=== PATIENT | female | born 1960 ===

== ENCOUNTER 2022-09-18 16:15 | Emergency (ER) | payer MEDICARE, OTHER ==
[~2022-09-18] VITALS: Ht 162.6 cm; Wt 117.0 kg
[2022-09-18] MEDS ORDERED: LAMOTRIGINE25 MG PO (18:32)
[2022-09-18] MEDS ORDERED: LEVETIRACETAM250 MG PO (18:32)
[2022-09-18] MEDS ORDERED: HYDROCHLOROTH12.5 MG PO (18:32)
[2022-09-18] MEDS ORDERED: DIVALPROEX SOD125 MG PO (18:32)
[2022-09-18] MEDS ORDERED: QUETIAPINE FUM100 MG PO (18:32)
[2022-09-18] MEDS ORDERED: GLYCOPYRROLATE1 MG PO (18:32)
[2022-09-18] MEDS ORDERED: LISINOPRIL20 MG PO (18:33)
[2022-09-18] MEDS ORDERED: SERTRALINE HCL100 MG PO (18:33)
[2022-09-18 19:32] VITALS: BP 158/74
== END 2022-09-18 19:34 | disposition home or self-care (01) ==
LOC: ED 16:15
DX: B30.9 Viral conjunctivitis, unspecified (principal); F99 Mental disorder, not otherwise specified; Z20.822 Contact with and (suspected) exposure to COVID-19; Z88.8 Allergy status to other drugs, medicaments and biological substances; Z79.899 Other long term (current) drug therapy
CPT/HCPCS: 87502; C9803; U0003

== ENCOUNTER 2022-10-17 05:53 | Day surgery (SDC) | payer MEDICARE, OTHER ==
[~2022-10-17] VITALS: Ht 162.6 cm; Wt 92.1 kg
[~2022-10-17 05:53] MED LIST: AZELASTINE HCL6 ML OPTH; DEPAKOTE SPRIN125 MG PO; DIVALPROEX SOD125 MG PO; EAR WAX DROPS15 M1; EZALLOR SPRINKL20 MG PO; GLYCOPYRROLATE1 MG PO; HYDROCHLOROTH12.5 MG PO; KEPPRA250 MG PO; LAMICTAL25 MG PO; LAMOTRIGINE25 MG PO; LANTISEPTIC113 GM TP; LEVETIRACETAM250 MG PO; LISINOPRIL20 MG PO; MAG-AL PLUS XS30 ML; MILK OF MA400 MG/5 M PO; MIRALAX119 GM; QUETIAPINE FUM100 MG PO; SEROQUEL100 MG PO; SERTRALINE HCL100 MG PO; SM TUSSIN CF S; TYLENOL325 MG PO; VENTOLIN HFA18 GM; VITAMIN D310 MC4 PO
[2022-10-17 06:21] VITALS: BP 137/89
--- NOTE | 2022-10-17 09:28 | NUR ---
10/17/22 0928 Sheets,Cammy 0837 PT ARRIVED TO PACU WITH LAB TECH DOING JAW THRUST AND NASAL AND ORAL AIRWAYS IN PLACE. 0838 BREATHING TREATMENT START PER LAB TECH, NOISEY AIRWAY NOTED. HOB INCREASED AND 6L MASK WITH BREATHING TREATMENT NOTED. 0840 JAW THRUST USED, VERY STIFF NECK AND JAW NOTED BY LAB TECH AND RN. MIRI CENTENO RN.
--- NOTE | 2022-10-17 10:39 | NUR ---
0850 - CALLED TO PACU FOR ASSESSING PATIENT AND PLACING ON BIPAP. PT WITH DEVELOPMENTAL DELAYS, LARGE NECK AND TONGUE CURRENTLY ON A SIMPLE MASK WITH CHIN THRUST. PLACED PT ON THE FOLLOWING SETTINGS: IPAP 17 EPAP 7 60% FIO2 FOR SPO2 OF 94%. HR 97 I-TIME 0.90 RISE 3 TIDAL VOLUME 324 MIN VENT 5.4 RR SET 16 DOING 20 PT WITH INSPIRATORY STRIDOR AND EXP COARSE WHEEZES T/O. 0908 - ALBUTEROL TREATMENT GIVEN VIA AEROGEN THROUGH BIPAP 0916 - RACEMIC EPI GIVEN VIA AEROGEN THROUGH BIPAP 0925 - SPO2 100% ON 60% O2, DECREASED FIO2 TO 50%. 1000 - DECREASED EPAP TO 6. VT 392 AND VE 7.8; RR 16 PT DOING 22 1015 - TRIALED PT OFF BIPAP ON RA AND PT DID WELL UNTIL PT WENT BACK TO SLEEP AND HAD APNEIC PERIODS. PT'S SATS WENT TO 84%. PLACED PT BACK ON BIPAP AT 1020. 1040 - PT OFF BIPAP AND ON SIMPLE MASK AT 10L/MIN FOR SPO2 OF 98%. ALARMS WERE SET AT: RR HIGH 40, LOW 9 VT HIGH 1000, LOW 170, VE SLOW 3.0, PRESSURES HIGH 30 LOW 4.
--- NOTE | 2022-10-17 11:25 | NUR ---
PT ARRIVES TO PACU UNIT VIA STRETCHER. REPORT RECEIVED FROM SHIRA DURAN. PT IS DROWSY BUT RESPONSIVE TO VERBAL STIMULI. PT IS ON 4L OF O2 VIA OXIMASK AT THIS TIME W/O2 SATS VIA PULSE OX >90%. PT HAS SMALL AMOUNT OF DRIED BLOOD DRAINAGE AROUND MOUTH FROM OPERATIVE SITE. PT IS NONVERBAL AT BASELINE BUT PER FLACC SCALE, NO PAIN AT THIS TIME. IV SITE WNL. LUNG SOUNDS ARE DIMINISHED IN BASES AND UPPER LOBES BILAT HAVE INS WHEEZE. CALL LIGHT WITHIN REACH, SCD'S IN PLACE, CAREGIVER AT BEDSIDE. NO FURTHER NEEDS AT THIS TIME.
[2022-10-17 11:32] VITALS: BP 161/94
--- NOTE | 2022-10-17 11:43 | NUR ---
THIS RN IN ROOM, PT TITRATED FROM 4L OF O2 VIA OXIMASK TO 3L. O2 SATS VIA PULSE OX MAINTAINT >90% WHILE AWAKE AND WITH EYES CLOSED. PT IS MORE AWAKE AND EYES ARE CONSISTENTLY OPEN WHILE LOOKING AROUND THE ROOM. PT HAS GOOD PRODUCTIVE COUGH AT THIS TIME. PT DOES NOT APPEAR IN ANY DISTRESS AND PER FLACC SCALE, NO PAIN AT THIS TIME.
[2022-10-17 12:24] VITALS: BP 135/84
--- NOTE | 2022-10-17 12:26 | NUR ---
THIS RN IN ROOM FOR ASSESSMENT AND VS. TITRATED FROM 3L OF O2 VIA OXYMASK TO 2L OF O2 VIA OXYMASK AND O2 SATS READ 92% AT THIS TIME WHILE PT HAS EYES CLOSED. INSPIRATORY WHEEZE HEARD IN BILAT UPPER LOBES AND DIMINISHED IN BILAT LOWER LOBES, NO SIGNS OF DISTRESS NOTED AND RESPIRATIONS ARE EVEN AND UNLABORED. PER FLACC SCALE OF 0 NO INDICATIONS OF PAIN AT THIS TIME, PT APPEARS COMFORTABLE. SURGERY SITE HAS SMALL AMOUNT OF SS DRAINAGE THAT IS DRIED, NO NEW SIGNS OF BLEEDING AT THIS TIME. CALL LIGHT WITHIN REACH, CAREGIVER AT BEDSIDE, NO FURTHER NEEDS AT THIS TIME.
[2022-10-17 13:16] VITALS: BP 142/90
--- NOTE | 2022-10-17 13:20 | NUR ---
IN PT ROOM FOR VS AND ASSESSMENT. PT IS A&O AT THIS TIME, NONVERBAL AT BASELINE. PER FLACC SCALE OF 0, NO SIGNS OF PAIN OR DISCOMFORT AT THIS TIME. PT TITRATED TO 1L OF O2 VIA NC FROM 2L, AND O2 SATS >90% AT THIS TIME. SMALL AMOUNT OF DRIED SS DRAINAGE IN MOUTH, CLEANED AT THIS TIME. PT HAS COMPLETELY WET THE BED, FULL BED CHANGE AT THIS TIME WITH 2 NURSE ASSIST. PT POST BED CHANGE W/O2 SATS MID 80% ON RA, PULSE OX REPOSITIONED WITH SAMPLE DYE MIXER LH. PT NOW BACK ON 1L OF O2 VIA OXYMASK W/O2 SATS >90%. PER LEANNE ICEBOX MAN, WILL CALL RT FOR CPAP D/T PT NOT TOLERATING INSTRUCTIONS FOR DEEP BREATHING, COUGHING, OR ABILITY TO USE IS. CALL LIGHT WITHIN REACH, CAREGIVER AT BEDSIDE.
--- NOTE | 2022-10-17 14:02 | NUR ---
1400 RT CALLED AND PLAN OF CARE DISCUSSED. MEDICARE INSURANCE SPECIALIST SUGGESTED CPAP AND RT AGREES. RT WILL BRING CPAP TO DEPARTMENT.
--- NOTE | 2022-10-17 14:24 | NUR ---
RT AT BEDSIDE, PT DROOLING BROWN TINGED LIQUID. SUCTION USED. CPAP PLACED, SEE RT SETTINGS. CAREGIVER AT BEDSIDE. O2 SAT HIGH 90S ON CPAP.
--- NOTE | 2022-10-17 14:25 | NUR ---
IN ROOM WITH ZOFIA RT AT THIS TIME FOR CPAP THERAPY D/T PT INABILITY TO TAKE DEEP BREATHS, COUGH, OR USE IS D/T NONVERBAL AT BASELINE. O2 IN PLACE VIA PULSE OX >90%, PT ON CPAP OF 14 W/ FIO2 AT 21%. PT TOLERATING WELL. THIS RN AND ZOFIA RT REMAIN IN ROOM.
[2022-10-17 14:30] VITALS: BP 154/78
--- NOTE | 2022-10-17 15:05 | NUR ---
THIS RN, TOYIN DEAL RN, AND SHIRA RN IN ROOM WITH PT AND 2 CAREGIVERS AT THIS TIME. POST CPAP ADMIN, O2 REMAINED BETWEEN 86 AND 89% VIA PULSE OX. PT WAS SAT UP AT BEDSIDE AND O2 INCREASED BETWEEN 91-95%, PT 2PA TO WC AND PT AMBULATED SELF AROUND UNIT, NO SIGNS OF DISTRESS. POST AMBULATION, PT O2 SATS INCONSISTENTLY BETWEEN 88 AND 94%, BUT >90% WHEN GOOD PLETH FORM VIA PULSE OX. PER CAREGIVERS, PT IS BACK AT BASELINE FOR BEHAVIOR. PT HAS SPASTICITY IN EXTREMITIES AND O2 TAKEN ON EAR, STICKER PULSE OX, AND REGULAR PULSE OX. PT CAREGIVERS COMFORTABLE WITH DISCHARGE AND PT REMAINS FREE OF PAIN PER FLACC SCALE, AND NO ACTIVE BLEEDING AT THIS TIME.
--- NOTE | 2022-10-17 15:55 | NUR ---
IN PT ROOM TO PROVIDE DISCHARGE INFORMATION TO CAREGIVERS, BOTH STATE VERBAL UNDERSTANDING. VS TAKEN, STABLE, O2 READING VIA PULSE OX AT 95% AT THIS TIME WITH FINGER PROBE HELD STEADY. IV SITE DC'ED, CATHETER TIP INTACT, GAUZE/COBAN IN PLACE. ESCORTED OFF OF UNIT VIA PERSONAL WC. ALL BELONGINGS IN PT POSSESSION, CAREGIVERS STATE NO FURTHER NEEDS OR QUESTIONS AT THIS TIME.
[2022-10-17 16:05] VITALS: BP 158/83
== END 2022-10-17 15:55 | disposition home or self-care (01) ==
LOC: DS 05:53
PROVIDERS: ATTEND Dentist General Practice
PROC: 0CRXXJ0 Replacement of Lower Tooth, Single, with Synthetic Substitute, External Approach (ICD-10-PCS; 2022-10-17)
PROC: 0CRWXJ1 Replacement of Upper Tooth, Multiple, with Synthetic Substitute, External Approach (ICD-10-PCS; 2022-10-17)
PROC: 0CDXXZ0 Extraction of Lower Tooth, Single, External Approach (ICD-10-PCS; principal; 2022-10-17 07:00)
DX: K05.6 Periodontal disease, unspecified (principal); K08.409 Partial loss of teeth, unspecified cause, unspecified class; K02.9 Dental caries, unspecified; K03.6 Deposits [accretions] on teeth; G80.4 Ataxic cerebral palsy; F79 Unspecified intellectual disabilities; G40.909 Epilepsy, unspecified, not intractable, without status epilepticus
CPT/HCPCS: 00170; 36415; 71045; 80048; 85025; 94640; 94660; A9270; J0330; J1100; J1885; J2250; J2405; J2704; J2765; J3010; J7121

== ENCOUNTER 2022-10-29 19:41 | Emergency (ER) | payer MEDICARE, OTHER ==
[~2022-10-29] VITALS: Ht 162.6 cm; Wt 92.1 kg
[2022-10-29 21:25] VITALS: BP 153/90
== END 2022-10-29 21:17 | disposition home or self-care (01) ==
LOC: ED 19:41
DX: H92.02 Otalgia, left ear (principal); F84.0 Autistic disorder; F79 Unspecified intellectual disabilities; M06.9 Rheumatoid arthritis, unspecified; G40.909 Epilepsy, unspecified, not intractable, without status epilepticus; F63.9 Impulse disorder, unspecified; R13.10 Dysphagia, unspecified; Z88.8 Allergy status to other drugs, medicaments and biological substances; Z79.899 Other long term (current) drug therapy
CPT/HCPCS: 99282

== ENCOUNTER 2024-05-29 10:41 | Emergency (ER) | payer MEDICARE, OTHER ==
[~2024-05-29] VITALS: Ht 162.6 cm; Wt 85.3 kg
[~2024-05-29 10:41] MED LIST changes: +VENTOLIN HFA18 GM INH
[2024-05-29] MEDS ORDERED: QUETIAPINE FUMA25 MG PO (10:57)
[2024-05-29 12:10] LABS: BASOPHILS 0.6 % (0-2); EOSINOPHILS 2.1 % (0-6); HEMATOCRIT 42.1 % (35.0-50.0); HEMOGLOBIN 14.5 g/dL (12.0-18.0); LYMPHOCYTES 36.7 % (24-44); MCH 31.5 (27-36); MCHC 34.4 g/dl (30-36); MCV 91.4 fl (81-99); MONOCYTES 7.2 % (0-12); NEUTROPHILS 53.4 % (39-80); PLATELET COUNT 221 K/uL (140-440); RBC 4.61 M/ul (4.3-5.7); RDW 14.7 (10.5-15.0)
[2024-05-29 12:21] LABS: BUN/CREATININE RATIO 26.53 (6.0-28.6); CALCIUM 8.9 mg/dL (8.5-10.1); CREATININE, SERUM 0.49 mg/dL (0.55-1.02)
[2024-05-29 12:25] LABS: BILIRUBIN, URINE NEGATIVE (negative); BLOOD/HGB, URINE NEGATIVE (Negative); KETONE, URINE NEGATIVE (Negative); LEUK ESTERASE, URINE NEGATIVE (negative); NITRITE, URINE NEGATIVE (negative)
[2024-05-29 12:30] LABS: EPITHELIAL CELLS, URINE SQUAMOUS 1+ /lpf (0-1+)
[2024-05-29 12:31] LABS: BACTERIA, URINE NONE SEEN /hpf (negative); CASTS, URINE NONE SEEN \\lpf; COLLECTION TYPE, URINE CLEAN CATCH; CRYSTALS, URINE NONE SEEN (0-1+); RED BLOOD CELLS, URINE 0-1 /hpf (0-5); REFLEX CULTURE, URINE No (No)
[2024-05-29 15:30] VITALS: BP 146/100
== END 2024-05-29 15:30 | disposition home or self-care (01) ==
LOC: ED 10:41
PROVIDERS: Emergency Medicine
DX: R41.82 Altered mental status, unspecified (principal); F84.0 Autistic disorder; G40.909 Epilepsy, unspecified, not intractable, without status epilepticus; R62.50 Unspecified lack of expected normal physiological development in childhood; Z88.8 Allergy status to other drugs, medicaments and biological substances; Z79.899 Other long term (current) drug therapy
CPT/HCPCS: 36415; 70450; 80048; 81001; 85025; 99284-25

== ENCOUNTER 2024-07-22 06:44 | Day surgery (SDC) | payer MEDICARE, OTHER ==
[~2024-07-22] VITALS: Ht 162.6 cm; Wt 82.6 kg
[~2024-07-22 06:44] MED LIST changes: +ACETAMINOPHEN325 M1 PO; +ADULT TUSS100 MG/51 PO; +ALBUTEROL2.5 MG/3 M INH; +GNP VITAMIN A113 GM TOP; +LACTATED RINGER'S 1,000 ML IV SCH; +QUETIAPINE FUM150 M1 PO; +QUETIAPINE FUMA25 MG PO; -VENTOLIN HFA18 GM INH
[2024-07-22] MEDS ORDERED: EAR WAX DROPS15 M1 (06:46)
[2024-07-22] MEDS ORDERED: MILK OF MA400 MG/5 M PO (06:47)
[2024-07-22] MEDS ORDERED: NYAMYC15 GM TOP (06:49)
[2024-07-22] MEDS ORDERED: LIDOCAINE HCL 1% 5 ML SDV INJ ONE (07:00)
[2024-07-22] MEDS ORDERED: IBLOOD GLUCOSE TEST STRIP 1 EA TEST VI PRN ×2 (07:00→09:45)
[2024-07-22 07:08] VITALS: BP 183/108
--- NOTE | 2024-07-22 07:30 | NUR ---
PT NOT AVAILABLE FOR VISIT. PROVIDED PRAYER.
[2024-07-22] MEDS ORDERED: dexmedeTOMIDine HCl 200 MCG/2 ML VIAL NAS ONE (08:00)
[2024-07-22] MEDS ORDERED: MIDAZOLAM HCL 2 MG/2 ML VIAL ONE (08:13)
[2024-07-22] MEDS ORDERED: KETAMINE HCL 500 MG/5 ML MDV ONE (08:25)
[2024-07-22] MEDS ORDERED: ROCURONIUM BROMIDE 50 MG/5 ML SYR ONE (08:47)
[2024-07-22] MEDS ORDERED: DEXAMETHASONE SOD PHOS 4 MG/ML VIAL ONE (08:47)
[2024-07-22] MEDS ORDERED: SUGAMMADEX SODIUM 200 MG/2 ML ML ONE (08:47)
[2024-07-22] MEDS ORDERED: propofoL 200 MG/20 ML VIAL ONE (08:47)
[2024-07-22] MEDS ORDERED: LIDOCAINE HCL 2% 5 ML SDV ONE (08:47)
[2024-07-22] MEDS ORDERED: ondansetron HCL 4 MG/2 ML VIAL ONE (08:47)
[2024-07-22] MEDS ORDERED: fentaNYL citrate 100 MCG/2 ML VIAL ONE (08:47)
[2024-07-22 09:00] LABS: BASOPHILS 0.7 % (0-2); EOSINOPHILS 2.4 % (0-6); HEMATOCRIT 41.1 % (35.0-50.0); HEMOGLOBIN 14.1 g/dL (12.0-18.0); LYMPHOCYTES 39.9 % (24-44); MCH 31.5 (27-36); MCHC 34.4 g/dl (30-36); MCV 91.5 fl (81-99); MONOCYTES 6.6 % (0-12); NEUTROPHILS 50.4 % (39-80); PLATELET COUNT 208 K/uL (140-440); RBC 4.49 M/ul (4.3-5.7); RDW 14.6 (10.5-15.0)
[2024-07-22 09:08] LABS: ANION GAP 6.3 (7-21); BUN/CREATININE RATIO 15.62 (6.0-28.6); CALCIUM 8.8 mg/dL (8.5-10.1); CREATININE, SERUM 0.32 mg/dL (0.55-1.02); POTASSIUM 4.3 mmol/L (3.5-5.1)
[2024-07-22] MEDS ORDERED: ePHEDrine sulfate 50 MG/ML AMP ONE (09:24)
[2024-07-22] MEDS ORDERED: ondansetron HCL 4 MG/2 ML VIAL IV PRN (09:45)
[2024-07-22] MEDS ORDERED: fentaNYL citrate 50 MCG/ML SDV IV PRN (09:45)
[2024-07-22] MEDS ORDERED: PROCHLORPERAZINE EDISYLATE 10 MG/2 ML VIAL IV PRN (09:45)
[2024-07-22] MEDS ORDERED: droPERidol 5 MG/2 ML VIAL IV PRN (09:45)
[2024-07-22] MEDS ORDERED: MIDAZOLAM HCL 2 MG/2 ML VIAL IV PRN (09:45)
[2024-07-22] MEDS ORDERED: NALOXONE HCL 0.4 MG SYR IV PRN (09:45)
--- NOTE | 2024-07-22 11:58 | NUR ---
07/22/24 Vale Silva 1139- PT ARRIVES TO PACU, SEMI MEJIA POSITION, NON REACTIVE TO STIMULUS. PT HAS OPA IN PLACE WITH 6L O2 PER MASK, BREATHING EVEN AND NON LABORED. LR INFUSING TO RH IV. PT HAS BANDAID TO LEFT BREAST WITH SMALL AMOUNT OF DRAINAGE AND BRUISING AROUND THE BANDAID. ABD ROUND, FIRM, NON DISTENDED. ALL MONITORS IN PLACE. 1148- PT REACTIVE TO TACTILE STIMULUS, TURNS HEAD SIDE TO SIDE, OPA REMOVED. O2 LEFT PLACE AT THIS TIME. CONTINUE TO MONITOR PT.
[2024-07-22 12:45] VITALS: BP 166/78
--- NOTE | 2024-07-22 12:45 | NUR ---
PT ARRIVED BACK TO DS ON 2L VIA NC. PT DROWSY, BUT AROUSABLE TO TACTILE STIMULI. VS TAKEN. IV SITE ASSESSED AND NOTED TO BE CDI UPON ARRIVAL BACK TO . REPORT RECEIVED FROM INFLATABLE BUILDINGS LAMINATOR. SURGICAL SITE VISUALIZED WITH INFLATABLE BUILDINGS LAMINATOR. NOTED MODERATE AMT OF SANGUINOUS DRAINAGE ON L BREAST BIOPSY DRSG. NO BLEEDING NOTED FROM EXTRACTION SITE IN MOUTH. PT W/O S/SX'S PAIN OR NAUSEA. PTS CG IN ROOM UPON RETURN. BED IN LOW POSITION, WHEELS LOCKED. BILAT RAILS IN PLACE. CALL LIGHT WITHIN PT REACH. THICKENED WATER AND PUDDING PROVIDED FOR PT. CG TO ASSIST WITH FEEDING ONCE PT MORE AWAKE. PT INCONTINENT OF B&B. ATTENDS IN PLACE AND CLEAN AND DRY AT THIS TIME.
--- NOTE | 2024-07-22 13:00 | NUR ---
TITRATED PTS O2 TO 1L/NC WITH SATS AT 92%
[2024-07-22 13:45] VITALS: BP 154/83
[2024-07-22] MEDS ORDERED: SEVOFLURANE 250 ML BTL INH ONE (14:05)
--- NOTE | 2024-07-22 14:05 | NUR ---
1345-INTO PTS ROOM FOR ROUTINE REASSESSMENT. VS TAKEN. IV SITE ASSESSED. SURGICAL SITES VISUALIZED. NO ACUTE CHANGES NOTED FROM PREVIOUS ASSESSMENT. PT TITRATED TO RA WITH SATS STABLE ON RA AT 92-93%. PT APPEARS MORE AWAKE AND COGNITION HAS RETURNED TO HER BASELINE. CG REMAINS IN ROOM AT BEDSIDE. PT WITHOUT S/SX OF PAIN OR NAUSEA. PT IS INCONTINENT OF B&B AT BASELINE. ATTENDS CHECKED AND LARGE VOID NOTED. CG ASSISTED THIS RN IN CHANGING BRIEF. PTS DRESS, SOCKS, AND SHOES PLACED BY THIS RN WITH HER CG'S ASSIST. HOB ELEVATED TO APPROX 45 DEGREES. CG ASSISTING PT WITH EATING PUDDING AND TAKING THICKENED FLUIDS BY SPOON. 1400-MAMMOGRAM TECH NOTIFIED PT IS AWAKE AND ABLE TO TRANSFER TO . 1405-IV REMOVED, TIP APPEARS INTACT. PRESSURE DRSG APPLIED WITH GAUZE AND COBAN. DISCHARGE INSTRUCTIONS REVIEWED WITH CG. ALL QUESTIONS ANSWERED.
--- NOTE | 2024-07-22 14:10 | NUR ---
PT DISCHARGED FROM DS VIA WC TO CARE OF CG. PT HEADED TO MAMMOGRAPHY WITH CG. ALL PERSONAL BELONINGS TAKEN WITH PT AND CG.
--- NOTE | 2024-07-22 19:49 | EKG ---
[facility] [address] [facility] [place] [address] Signed Sinus bradycardia Otherwise normal ECG No previous ECGs available Confirmed by Dillan Tejada MD ([id number]) on 07/22/2024 7:49:46 PM Electronically Signed By: DILLAN TEJADA MD 07/22/241948 PATIENT NAME: CARLOS VITAL Louis Electrocardiogram DATE OF : 56 PHYSICIAN: DILLAN TEJADA MD REPORT #: [id number] REPORT IS CONFIDENTIAL AND NOT TO BE RELEASED WITHOUT AUTHORIZATION
--- NOTE | 2024-07-26 10:52 | PATH ---
[facility] [address] [place], [place] [address] Signed THIS IS AN ADDENDUM REPORT SPECIMEN(S): A LEFT BREAST, 2:30 4 CM FN SPECIMEN SOURCE: A. LEFT BREAST, 2:30 4 CM FN CLINICAL HISTORY: Area of multiple echogenic structures. US-guided. 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 Davalos on 07/25/24. As part of [facility]' Quality Improvement Program, this case was reviewed by another member of our pathology staff. BRP MICROSCOPIC EXAMINATION: Histologic sections of all submitted blocks are examined by light microscopy. These findings, together with the gross examination, support the pathologic diagnosis. GROSS DESCRIPTION: The specimen, labeled and designated "Ansley Sheehan, left breast, 230, 4 cm from nipple," is received in formalin and consists of 8 cores of yellow-frazier soft tissue measuring up to 2.0 cm in length by up PATIENT NAME: CARLOS SHEEHAN PATHOLOGY DATE OF : 56 REPORT #: [id number] PHYSICIAN: HETAL IRVING PCP: THEODORA CASTILLO MD REPORT IS CONFIDENTIAL AND NOT TO BE RELEASED WITHOUT AUTHORIZATION [facility] [address] [place], [place] [address] Signed to 0.3 cm in diameter. The tissues inked blue and submitted entirely in cassettes (A1-A2). Cold Ischemic Time: 6 minutes Formalin Fixation Time: 10.5 hours AB (under the direct supervision of a pathologist) The Gross Description was prepared using a voice recognition system. The report was reviewed for accuracy; however, sound-alike word errors, addition and/or deletions may occur. If there is any question about this report, please contact Client Services. ADDITIONAL NOTES: Immunohistochemical and/or in situ hybridization studies if performed in this case included appropriate positive controls that reacted as expected. This test was developed and its performance characteristics determined by [facility]. It has not been cleared or approved by the U.S. Food and Drug Administration. The FDA has determined that such clearance or approval is not necessary. This test is used for clinical purposes. It should not be regarded as investigational or for research. [facility] is certified under the Clinical Laboratory Improvement Amendments of 1988 (CLIA) as qualified to perform high complexity clinical laboratory testing. PERFORMING LABORATORY: Technical component was performed by [facility], [address] [place] [address] (CLIA# [id number]). Professional interpretation was performed by [facility] - [facility], [address] [place] [address] (CLIA#: [id number]). ADDITIONAL NOTES: Immunohistochemical and/or in situ hybridization studies if performed in this case included appropriate positive controls that reacted as expected. This test was developed and its performance characteristics determined by [facility]. It has not been cleared or approved by the U.S. Food and Drug Administration. The FDA has determined that such clearance or approval is not necessary. This test is used for clinical purposes. It should not be regarded as investigational or for research. [facility] is certified under the Clinical Laboratory Improvement Amendments of 1988 (CLIA) as qualified to perform high complexity clinical laboratory testing. Professional interpretation was performed by [facility] PATIENT NAME: CARLOS SHEEHAN PATHOLOGY DATE OF : 56 REPORT #: [id number] PHYSICIAN: HETAL IRVING PCP: THEODORA CASTILLO MD REPORT IS CONFIDENTIAL AND NOT TO BE RELEASED WITHOUT AUTHORIZATION [facility] [address] [place], [place] [address] Signed [place], Formerly named [facility] [address] (CLIA#: [id number]). REASON FOR ADDENDUM: To add results of additional testing ADDENDUM PATHOLOGIC DIAGNOSIS: Breast Biomarker Reporting Template Test(s) Performed: Estrogen Receptor (ER) Status: Positive (greater than 10% of cells demonstrate nuclear positivity) Percentage of Cells with Nuclear Positivity: 91-100% Average Intensity of Staining: Strong Test Type: Food and Drug Administration (FDA) cleared (test / vendor) - Aide Primary Antibody: SP1 Scoring System: No separate scoring system used Progesterone Receptor (PgR) Status: Positive Percentage of Cells with Nuclear Positivity: 31-40% Average Intensity of Staining: Moderate Test Type: Food and Drug Administration (FDA) cleared (test / vendor) - Aide Primary Antibody: 1E2 Scoring System: No separate scoring system used Cold Ischemia and Fixation Times: Meet requirements specified in latest version of the ASCO / CAP Guidelines Cold Ischemia Time (minutes): 6 min Fixation Time (hours): 10.5 hours Testing Performed on Block Number(s): A1 METHODS Fixative: Formalin BRP Diagnostician: Srinivas Davalos MD Pathologist Electronically Signed 07/26/2024 Copies: ~ PATIENT NAME: CARLOS SHEEHAN PATHOLOGY DATE OF : 56 REPORT #: [id number] PHYSICIAN: HETAL PATHOLOGY PCP: THEODORA CASTILLO MD REPORT IS CONFIDENTIAL AND NOT TO BE RELEASED WITHOUT AUTHORIZATION
== END 2024-07-22 14:10 | disposition home or self-care (01) ==
LOC: OPS 06:44 → DS 06:44 → OPS 09:05 → DS 09:05 → OPS 14:10
PROVIDERS: ATTEND Dentist General Practice
PROC: 0CDWXZ2 Extraction of Upper Tooth, All, External Approach (ICD-10-PCS; 2024-07-22)
PROC: 0CDXXZ2 Extraction of Lower Tooth, All, External Approach (ICD-10-PCS; principal; 2024-07-22 09:05)
DX: K02.9 Dental caries, unspecified (principal); D05.92 Unspecified type of carcinoma in situ of left breast; M19.90 Unspecified osteoarthritis, unspecified site; Z79.899 Other long term (current) drug therapy; Z88.8 Allergy status to other drugs, medicaments and biological substances
CPT/HCPCS: 00170; 19083; 36415; 77065; 80048; 85025; 88305; 88360; 93005; 93010; J1100; J2003; J2250; J2405; J2704; J3010; J3490

== ENCOUNTER 2024-12-01 05:42 | Observation (INO) | payer MEDICARE, OTHER ==
[2024-12-01] VITALS (10 sets, daily range): BP systolic 99–148; BP diastolic 49–72
[~2024-12-01] VITALS: Ht 162.6 cm; Wt 85.0 kg
[~2024-12-01 05:42] MED LIST changes: +EAR WAX DROPS15 M1 AU; -EZALLOR SPRINKL20 MG PO; +NYAMYC15 GM TOP; +ROSUVASTATIN CA20 MG PO; +VITAMIN D310 MC1 PO; -VITAMIN D310 MC4 PO
[2024-12-01] MEDS ORDERED: SODIUM CHLORIDE 0.9% 20 ML IV ONE (06:53)
[2024-12-01] MEDS ORDERED: Methylene Blue 100 MG/10 ML SDV ONE (06:53)
[2024-12-01] MEDS ORDERED: LIDOCAINE HCL 1% 5 ML SDV INJ ONE (07:00)
[2024-12-01] MEDS ORDERED: IBLOOD GLUCOSE TEST STRIP 1 EA TEST VI PRN (07:00)
[2024-12-01] MEDS ORDERED: HEParin SOD (PORCINE) 5,000 UNIT/ML SDV SUB-Q SCH (07:00)
[2024-12-01] MEDS ORDERED: CEFAZOLIN SODIUM 2 GM/20 ML SYR IV SCH ×2 (07:00→14:00)
--- NOTE | 2024-12-01 07:33 | NUR ---
VISITED DURING SPIRITUAL CARE ROUNDS. PT NONVERBAL, DID NOT RESPOND TO MY GREETING. ABLE TO INDICATE FRUSTRATION IN BROADEST SENSE TO CAREGIVERS BUT NOT ABLE TO ENGAGE IN VISIT IN MEANINGFUL WAY. CAREGIVERS PRESENT DENY IMMEDIATE NEEDS. TOP LIFTER PROVIDED SUPPORTIVE PRESENCE, HOSPITALITY, PRAYER.
[2024-12-01] MEDS ORDERED: DEXAMETHASONE SOD PHOS 4 MG/ML VIAL ONE (08:46)
[2024-12-01] MEDS ORDERED: ACETAMINOPHEN 1,000 MG/100 ML VIAL ONE (08:46)
[2024-12-01] MEDS ORDERED: KETOROLAC TROMETHAMINE 30 MG/ML VIAL ONE (08:46)
[2024-12-01] MEDS ORDERED: ROCURONIUM BROMIDE 50 MG/5 ML SYR ONE (08:47)
[2024-12-01] MEDS ORDERED: SUGAMMADEX SODIUM 200 MG/2 ML ML ONE (09:24)
[2024-12-01] MEDS ORDERED: MIDAZOLAM HCL 2 MG/2 ML VIAL ONE (09:24)
[2024-12-01] MEDS ORDERED: DIVALPROEX SODIUM 500 MG TABLET.DR PO SCH (10:27)
[2024-12-01] MEDS ORDERED: SERTRALINE HCL 100 MG TAB PO SCH (10:29)
[2024-12-01] MEDS ORDERED: LACTATED RINGER'S 1,000 ML IV SCH (10:30)
[2024-12-01] MEDS ORDERED: MORPHINE SULFATE 10 MG/ML VIAL IV PRN (10:30)
[2024-12-01] MEDS ORDERED: PROCHLORPERAZINE EDISYLATE 10 MG/2 ML VIAL IV PRN (10:30)
[2024-12-01] MEDS ORDERED: KETOROLAC TROMETHAMINE 30 MG/ML VIAL IV PRN (10:30)
--- NOTE | 2024-12-01 10:51 | NUR ---
12/01/24 1051 Sheets,Cammy 1011 PT ARRIVED TO PACU ON 8L VIA MASK WITH ORAL AIRWAY IN PLACE. SOME SNORING NOTED WITH SOME UPPER OBSTRUCTION NOTED. CHIN LIFT USED OFF AND ON TO MAINTAIN AIRWAY. HOB INCREASED. O2 SAT REMAINS UPPER TO MID 90S. PT NONAROUSABLE TO TACTILE STIMULI AT THIS TIME.
--- NOTE | 2024-12-01 11:30 | NUR ---
PT ARRIVAL TO ROOM. MOVED OVER TO MED SURG STRETCHER VIA HOVER MAT. PT TOLERATED WELL. BRIEF SATURATED, OLIVIA-CARE COMPLETED AND NEW BRIEF PLACED. PUREWICK PLACED DUE TO INCONTINENCE AND FOR SKIN INTEGRITY. NO DISTRESS NOTED.
[2024-12-01] MEDS ORDERED: DIVALPROEX SODIUM 125 MG CAP.SPRINK PO SCH (13:00)
--- NOTE | 2024-12-01 13:33 | NUR ---
PT RESTING IN BED, LOOKING AROUND ROOM. NO DISTRESS NOTED. FALL PRECAUTIONS IN PLACE, SCD'S ON. O2 TITRATED TO 1L VIA NC.
[2024-12-01] MEDS ORDERED: ACETAMINOPHEN 500 MG TAB PO SCH (14:00)
--- NOTE | 2024-12-01 14:32 | NUR ---
Pt awake, HOB elevated. on room air, post op CPOX on at bedside, sats WNL. cooperative with vitals. took scheduled Tylenol 1000mg crushed and given with walt. Took w/o problems. tried to give her her honey thickened liquids and was unable to do as he kept moving L arm across mouth and pushing straw and cup away. Took sips of liquids via spoon. abd incision covered, CLINT with sanguineous drainage. SCDs in place. no s/sx distress at this time
[2024-12-01] MEDS ORDERED: ABILIFY10 MG PO (15:30)
[2024-12-01] MEDS ORDERED: MIRALAX119 GM PO (15:43)
[2024-12-01] MEDS ORDERED: LIP BALM BASE90 GM TOP (15:45)
--- NOTE | 2024-12-01 15:47 | NUR ---
MED REC COMPLETE
--- NOTE | 2024-12-01 15:50 | NUR ---
PT RESTING IN BED, NO DISTRESS NOTED. REPOSITIONED PT IN BED, KNEES ELEVATED. SCD IN PLACE. INCISION COVERED WITH DRESSING, SCANT AMOUNT OF RED DRAINAGE ON DRESSING, OTHERWISE INTACT. CLINT DRAIN INTACT, DRAINING WNL. SKIN SURROUNDING INCISION WNL. FALL PRECAUTIONS IN PLACE, CURTAIN OPEN FOR FALL RISK.
[2024-12-01] MEDS ORDERED: ALBUTEROL SULFATE 0.083% 3 ML VIAL INH PRN (16:00)
[2024-12-01] MEDS ORDERED: SEVOFLURANE 250 ML BTL INH ONE (16:30)
--- NOTE | 2024-12-01 16:55 | NUR ---
PT RESTING IN BED, NO DISTRESS NOTED. IVF CONTINUING PER ORDER. FALL PRECAUTIONS IN PLACE
--- NOTE | 2024-12-01 17:15 | NUR ---
INTO ROOM TO ASSIST PT WITH FEEDING. PT TOLERATING WELL, EATING IN SMALL BITES. PT CAREGIVER AT BEDSIDE, REPORTS PT DOESN'T LIKE WATER BUT WILL DRINK THE THICKENED JUICE. PROVIDED SOME APPLE JUICE, CAREGIVER ASSISTED WITH DRINKING. UPDATED CAREGIVER ON PLAN OF CARE, DENIES NEEDS. CALL LIGHT IN REACH OF CAREGIVER, FALL PRECAUTIONS IN PLACE
--- NOTE | 2024-12-01 18:16 | NUR ---
ROUNDED ON THE PATIENT AT THIS TIME. SANGUINEOUS DRAINAGE NOTED ON THE LEFT CHEST DRESSING. MD GAVE VERBAL ORDER TO REINFORCE DRESSING IS ABD AND TAPE. DRAIN EMPTIED AT THIS TIME. PATIENT WITH A VISITOR SITTING ON THE COUCH AT THIS TIME. CALL LIGHT AND PERSONAL BELONGINGS ARE WITHIN REACH.
--- NOTE | 2024-12-01 18:32 | NUR ---
PATIENT IS IN BED AT THIS TIME, ATHLETIC EQUIPMENT CUSTODIAN CHARTED VITALS AND I&O'S, CALL LIGHT WITH IN REACH, PATIENT HAS A FRESH BREIF, MALIK GARDNER JP DRAIN EMPTIED. IT FILLED UP QUITE FAST SINCE ROGER GILLIAM EMPTIED IT. RN NOTIFIED, AND I WILL KEEP AN EYE ON IT TO MAKE SURE IT ISNT FILLING TO FAST. WARM BLANKET FROM WARMER AND NOTHING ELSE NEEDED AT THIS TIME.
--- NOTE | 2024-12-01 19:39 | NUR ---
THIS RN CALLS DR. WHITTAKER REGARDING INCREASE IN DARK RED DRAINAGE TO CLINT DRAIN. MD STATES TO PLACE COMPRESSION ABOVE CLINT SITE AND TO STRIP CLINT TUBING. THIS RN ASKS DR. WHITTAKER FOR PARAMETERS TO CALL BACK REGARDING DRAINAGE, MD STATES TO "USE JUDGEMENT".
--- NOTE | 2024-12-01 20:00 | NUR ---
RECEIVED REPORT FROM DAY SHIFT RN. PATIENT LAYING IN BED WITH HOB RAISED, EYES OPEN, CHEST RISE EQUAL AND UNLABORED. NO CONCERNS NOTED AT THIS TIME.
[2024-12-01] MEDS ORDERED: levETIRAcetam 500 MG TAB PO SCH (21:00)
--- NOTE | 2024-12-01 21:59 | NUR ---
PRESSURE DRESSING APPLIED PER MD ORDER, PATIENT TOLERATED WELL. SCHEDULED MEDICATIONS ADMINISTERED, ASSESMENT COMPLETED, VITAL SIGNS OBTAINED. PATIENT LAYING IN BED WITH HOB RAISED. CHEST RISE EQUAL AND UNLABORED, EYES OPEN. NO NEEDS IDENTIFIED AT THIS TIME.
[2024-12-02] VITALS (9 sets, daily range): BP systolic 128–152; BP diastolic 49–68
--- NOTE | 2024-12-02 00:26 | NUR ---
PATIENT LAYING IN BED. EYES OPEN, CHEST RISE EQUAL AND UNLABORED. NO IMMEDIATE CONCERNS NOTED AT THIS TIME.
--- NOTE | 2024-12-02 02:00 | NUR ---
SEMICONDUCTOR WAFERS ETCHER STRIPPER OBTAINED VITALS AND I&O. PT STATES NO NEEDS AT THIS TIME. CALL LIGHT WITHIN REACH AND BED ALARM ON.
--- NOTE | 2024-12-02 02:36 | NUR ---
PATIENT LAYING IN BED. EYES OPEN, CHEST RISE UNLABORED AND EQUAL. NO APPARENT NEEDS AT THIS TIME.
--- NOTE | 2024-12-02 03:32 | NUR ---
PATIENT LAYING IN BED, EYES OPEN, CHEST RISE EQUAL AND UNLABORED. CLINT DRAIN EMPTIED, 95 ML DARK RED DRAINAGE. DRESSING CLEAN, DRY, AND INTACT. NO OTHER CONCERNS NOTED AT THIS TIME.
--- NOTE | 2024-12-02 04:07 | NUR ---
PATIENT IN BED, EYES OPEN, CHEST RISE EQUAL AND UNLABORED. PERSONAL BELONGINGS AND CALL LIGHT IN REACH, SCDS IN PLACE. NO IMMEDIATE CONCERNS NOTED AT THIS TIME.
--- NOTE | 2024-12-02 05:32 | NUR ---
PATIENT LAYING IN BED, EYES OPEN, CHEST RISE EQUAL AND UNLABORED. SCDS IN PLACE, PUREWICK CHANGED, DRAIN EMPTIED WITH RED DRAINAGE INTAKE AND OUTPUT DOCUMENTED. CALL LIGHT AND PERSONAL BELONGINGS IN PLACE. NO IMMEDIATE CONCERNS NOTED AT THIS TIME.
--- NOTE | 2024-12-02 06:41 | NUR ---
PATIENT IN BED, EYES OPEN, CHEST RISE EQUAL AND UNLABORED. CALL LIGHT AND PERSONAL BELONGINGS IN REACH. IV FLUIDS INFSING WITHOUT DIFFICULTY. SCHEDULED MEDICATIONS ADMINISTERED. PATIENT MOVED UP IN BED. NO FURTHER MEEDS APPARENT AT THIS TIME.
[2024-12-02 06:52] LABS: BASOPHILS 0.1 % (0.1-1.2); EOSINOPHILS 0.1 % (0.7-5.8); LYMPHOCYTES 33.3 % (19.3-51.7); MCH 31.7 PG (25.6-32.2); MCHC 34.8 g/dL (32.2-35.5); MCV 91.3 fL (79.4-94.8); MONOCYTES 7.3 % (4.7-12.5); NEUTROPHILS 58.9 % (34.0-71.1); RBC 3.34 M/uL (3.93-5.22)
--- NOTE | 2024-12-02 07:35 | NUR ---
PT AWAKE, LOOKING AROUND ROOM, NO DISTRESS NOTED. DRESSING INTACT, NO NEW BLEEDING NOTED. CLINT DRAIN DRAINING WNL, EMPTIED AT THIS TIME. REPOSITIONED PT IN BED. FALL PRECAUTIONS IN PLACE, IVF CONTINUING PER ORDER.
--- NOTE | 2024-12-02 08:43 | NUR ---
CLEANED UP PT FOLLOWING BREAKFAST. FACE WASHED AND HANDS WASHED. PT SEEMED TO ENJOY BREAKFAST AND THE WARM WASHCLOTH. TV ON, PT AT A 45 DEGREE SIT UP. CALL LIGHT WITHIN REACH, CURTAIN ALSO OPEN TO ASSIST PT.
--- NOTE | 2024-12-02 08:46 | NUR ---
PT WAS FED BREAKFAST, SHE SEEMED TO ENJOY HER MEAL, BUT DID NOT WANT ANYTHING TO DRINK. PT PUTS HANDS UP WHEN SHE DOES NOT WANT SOMETHING.
--- NOTE | 2024-12-02 08:52 | NUR ---
PT RESTING IN BED. ENJOYED BREAKFAST AND TOLERATED VITALS. TV ON AND PT CLEANED UP WITH AM ROUTINE, CLEANED FACE, HANDS AND ARMS. PT DID NOT WANT ANYTHING EXCEPT FOOD NEAR HER MOUTH, PT HAD NOTHING TO DRINK.
[2024-12-02] MEDS ORDERED: levETIRAcetam 500 MG TAB PO SCH (09:00)
--- NOTE | 2024-12-02 09:28 | NUR ---
INTO ROOM WITH DR WHITTAKER. SURGICAL INCISION ASSESSED. GOOD DRAINAGE THROUGH CLINT TUBE, LIGHT RED IN COLOR. PT SHOWS NO SIGNS OF DISTRESS, MOVING ALL EXTREMTIES WELL AND WNL. SCD REMAIN ON, IVF CONTINUING. PT TOOK ALL MEDICATIONS WELL IN CHOCOLATE PUDDING. CURTAIN OPEN FOR FALL RISK, CPOX IN PLACE
[2024-12-02] MEDS ORDERED: ACETAMINOPHEN500 MG PO (09:40)
--- NOTE | 2024-12-02 10:30 | NUR ---
Notified by staff pt may dc today. They spoke with pts caregiver and she has concerns for pt to return to [facility] with a CLINT drain. I called and spoke with Terry. She states they are unable to provide any dressing changes of any kind and she is requesting HH. Updated I called HH, they would be able to see this pt and provice education. They have had numerous referrals and would not be able to see this pt until the end of next week or the following of the next. Per Terry they can empty and measure the CLINT drainage. They are unable to complete any dressing changes. I texted Dr. Solis and requested he call me.
--- NOTE | 2024-12-02 11:06 | NUR ---
CHECKED ON PT. COMPLETED A PARTIAL ORAL CARE, PT WAS A LITTLE RELUCTANT TO COMPLETE TOOTHBRUSHING. CALL LIGHT WITHIN REACH, AND PT CURTAIN IS OPEN TO HAVE A VISUAL OF PT NEEDED.
--- NOTE | 2024-12-02 11:18 | NUR ---
PT RESTING IN BED, LOOKING AROUND ROOM AND WATCHING TV. OFFERED SOME JUICE BUT DID NOT WANT TO DRINK ANY. CPOX IN PLACE, IVF CONTINUING PER ORDER.
--- NOTE | 2024-12-02 11:22 | NUR ---
PT NOT AVAILABLE FOR VISIT. PROVIDED PRAYER.
--- NOTE | 2024-12-02 11:40 | NUR ---
Spoke with Dr. Solis and written instructions completed for the CLINT drain for [facility]. Dc instructions completed by Dr. Solis and each and each page signed. I called Terry and updated. She will come in at 1 pm and request staff go through the CLINT drain instructions with them. She denies other needs. RN updated to the above. She states dressing is off and and they place and abd to catch any drainage. She will review with Terry and staff.
--- NOTE | 2024-12-02 12:26 | NUR ---
PT DID NOT WANT ANYTHING TO DRINK WITH LUNCH. PT ATE LUNCH REALLY GOOD. PT NEEDS 100% AID WITH EATING. CALL LIGHT WITHIN REACH, CURTAIN OPEN FOR VISUAL OF PT AT NURSES STATION. PT CLEANED UP AFTER LUNCH WITH WARM WASH CLOTH - PT ENJOYS WARM WASH CLOTHS.
--- NOTE | 2024-12-02 12:34 | NUR ---
PT JUST HAD LUNCH, RESTING IN BED. NURSE AND THIS DRAWBENCH OPERATOR HELPER GOT PT DRESSED - HER FACILITY IS PICKING HER UP ABOUT 1:30PM.
--- NOTE | 2024-12-02 12:35 | NUR ---
Patient sitting up in bed eating her lunch with INTERVENTION ANALYST assist. Patient has no notable distress. Personal supplies and call light within reach.
--- NOTE | 2024-12-02 13:05 | NUR ---
INTO ROOM FOR MEDICATION ADMINISTRATION. PT TOOK MEDICATIONS WELL WITH APPLE SAUCE. PUREWICK DC'D AND IV TAKEN OUT FOR DISCHARGE. NEW BRIEF PLACED AND OLIVIA-CARE COMPLETED. PT PLACED IN HOME CLOTHES AND ANA LIFT USED WITH X3 STAFF TO MOVE INTO WHEELCHAIR. AWAITING [facility] STAFF FOR DC
--- NOTE | 2024-12-02 13:45 | NUR ---
Acticoat dressing removed from left breast/taya site. Facility staff educated at bedside regarding drain management/recording.
--- NOTE | 2024-12-02 14:03 | NUR ---
PT WAS DRESSED AND PLACED IN HER WHEELCHAIR, THIS HALL MONITOR AND THE PT'S TWO NURSES COMPLETED THIS TASK. dUE TO THE KIND OF WHEELCHAIR THIS PT HAS, HER SEATBELT WAS FASTENED AND THIS HALL MONITOR STAYED IN THE PT'S ROOM UNTIL THE CAREGIVERS FROM HER [facility] ARRIVED FOR DISCHARGE INSTRUCTIONS. PT WAS EDUCATED BY THE PRIMARY NURSE AND DISCHARGED. ROOM CLEANED AND EMPTIED, READY FOR CUSTODIANS.
--- NOTE | 2024-12-05 10:58 | PATH ---
[facility] [address] [facility] [place], [place] [address] Signed SPECIMEN(S): A LEFT BREAST SPECIMEN(S): B LEFT AXILLARY SPECIMEN(S): C LEFT SENTINEL LYMPH MJ SPECIMEN SOURCE: A. LEFT BREAST B. LEFT AXILLARY C. LEFT SENTINEL LYMPH MJ CLINICAL HISTORY: Left breast ductal carcinoma in situ. FINAL PATHOLOGIC DIAGNOSIS: A. Left breast, simple mastectomy - Focal residual ductal carcinoma in situ, high nuclear grade, solid and comedo types. - See synoptic report. B. Left axillary tissue - Benign fibroadipose tissue, negative for lymphoid tissue or malignancy. C. Left sentinel lymph nodes, dissection - Three sentinel lymph nodes negative for metastatic carcinoma (0/3). DCIS OF THE BREAST: Resection Applies To: A SPECIMEN Procedure: Total mastectomy Specimen Laterality: Left TUMOR Histologic Type: Ductal carcinoma in situ Size (Extent) of DCIS: Estimated size (extent) of DCIS is at least (Millimeters) - 3 mm Number of Blocks with DCIS: 3 Number of Blocks Examined: 13 Architectural Patterns: Comedo, Solid Nuclear Grade: Grade III (high) Necrosis: Present, central (expansive "comedo" necrosis) MARGINS Margin Status: All margins negative for DCIS Distance from DCIS to Closest Margin: Greater than - 10 mm Closest Margin(s) to DCIS: Posterior REGIONAL LYMPH NODES PATIENT NAME: CARLOS SHEEHAN PATHOLOGY DATE OF : 56 REPORT #: [id number] PHYSICIAN: [facility] PCP: THEODORA CASTILLO MD REPORT IS CONFIDENTIAL AND NOT TO BE RELEASED WITHOUT AUTHORIZATION [facility] [address] [place], [place] [address] Signed Regional Lymph Node Status: All regional lymph nodes negative for tumor Total Number of Lymph Nodes Examined (sentinel and non-sentinel): 4 Number of [place] Nodes Examined: 3 PATHOLOGIC STAGE CLASSIFICATION (pTNM, AJCC 8th Edition) pT Category: pTis (DCIS) Regional Lymph Nodes Modifier: (sn): [place] node(s) evaluated pN Category: pN0 Breast Biomarker Testing Performed on Previous Biopsy: Estrogen Receptor (ER) Status: Positive Progesterone Receptor (PgR) Status: Positive Testing Performed on COMMENT: For Application Processor, this case is reviewed by another member of [facility] (LAURIE). AMB MICROSCOPIC EXAMINATION: Histologic sections of all submitted blocks are examined by light microscopy. These findings, together with the gross examination, support the pathologic diagnosis. GROSS DESCRIPTION: A. The specimen, labeled and designated "Ansley Sheehan, " and designated on the requisition "left breast," is received in formalin and consists of 1445 gram unoriented left breast that is 21.5 x 21.6 x 5.8 cm. More adipose tissue is present along one aspect and is arbitrarily designated superior, at the time of grossing. The 20.6 x 16.1 cm ellipse of skin has a eccentrically located, everted nipple. The skin surface is pale pink and wrinkled with a blue dye discoloration that is a superior and lateral to the nipple. The specimen is inked as follows: anterior-superior - blue; anterior-inferior - green; and posterior - black. The specimen is serially sectioned from medial to lateral revealing a circular, twisted clip centrally located within the breast surrounded by yellow-frazier fibroadipose tissue. The clip is 3.1 cm from the anterior skin, 4.9 cm from the posterior soft tissue margin, 7.2 cm from the superior soft tissue margin, 8.4 cm from the inferior soft tissue margin, 10.6 cm from the medial soft tissue margin, and 9.8 cm from the lateral soft tissue margin. The fibroadipose tissue surrounding the clip is submitted for histologic examination. Upon PATIENT NAME: CARLOS SHEEHAN PATHOLOGY DATE OF : 56 REPORT #: [id number] PHYSICIAN: [facility] PCP: THEODORA CASTILLO MD REPORT IS CONFIDENTIAL AND NOT TO BE RELEASED WITHOUT AUTHORIZATION [facility] [address] [place], [place] [address] Signed palpation of the lateral aspect of the breast one possible lymph node is present with a blue dye discoloration measuring 2.4 cm in greatest dimension. Approximately 90% of the specimen is a yellow-frazier greasy adipose tissue and 10% is a white-frazier rubbery fibrous tissue. [employer] Process[employer] sections are submitted in 13 cassettes. Cassette Summary: (A1) nipple and skin (A2) retroareolar fibroadipose tissue (A3-A4) one possible lymph node, sectioned, with blue dye discoloration (A5) posterior soft tissue resection margin closest to clip, perpendicular (A6-A9) fibroadipose tissue surrounding clip submitted from medial to lateral with clip in A7 (A10) fibroadipose tissue upper inner quadrant (A11) fibroadipose tissue upper outer quadrant (A12) fibroadipose tissue lower outer quadrant (A13) fibroadipose tissue lower inner quadrant Time of collection: 9:09 AM December 01, 2024. Time into formalin: 9:13 AM December 01, 2024. Processor load time: 12 PM December 02, 2024. Ischemic time: 4 minutes Total fixation time in formalin: 26 hours 47 minutes The ASCO/CAP guidelines related to HER2 and hormone receptor testing in breast specimens have been met and the specimen has been placed in formalin within one hour and fixed in 10% neutral buffered formalin for 6 to 72 hours. B. The specimen, labeled and designated "Ansley Sheehan, " and designated on the requisition "additional breast tissue left axillary," is received in formalin and consists of 29 g unoriented portion of yellow-frazier fibroadipose tissue that is 6.6 x 5.1 x 2.3 cm. The specimen is inked and sectioned perpendicular to the long axis revealing approximately 90% of the specimen is a yellow-frazier greasy adipose tissue and 10% is a white rubbery fibrous tissue. No mass lesions are grossly identified. No lymph nodes are grossly identified. [employer] Process[employer] sections are submitted in (B1-B2). Time of collection: 9:09 AM December 01, 2024. Time into formalin: 9:13 AM December 01, 2024. Processor load time: 9 AM December 02, 2024. Ischemic time: 4 minutes Total fixation time in formalin: 23 hours 47 minutes The ASCO/CAP guidelines related to HER2 and hormone receptor testing in breast PATIENT NAME: CARLOS SHEEHAN PATHOLOGY DATE OF : 56 REPORT #: [id number] PHYSICIAN: [facility] PATHOLOG[facility] PCP: THEODORA CASTILLO MD REPORT IS CONFIDENTIAL AND NOT TO BE RELEASED WITHOUT AUTHORIZATION [place] [id number] [facility] [place] [address] Signed specimens have been met and the specimen has been placed in formalin within one hour and fixed in 10% neutral buffered formalin for 6 to 72 hours. C. The specimen, labeled and designated "Ansley Sheehan, " and designated on the requisition "left sentinel lymph nodes marked by stidahlia," is received in formalin and consists of 6.4 x 5.2 x 2.6 cm portion of yellow-frazier adipose tissue with 3 black sutures identifying possible lymph node candidates. These lymph node candidates measure up to 4.5 cm in greatest dimension. The lymph nodes are entirely submitted. Only adipose tissue remains within the container. Cassette Summary: (C1-C2) one possible lymph node, sectioned (C3-C5) one possible lymph node, sectioned (C6-C14) one possible lymph node, sectioned FB (under the direct supervision of a pathologist) The Gross Description was prepared using a voice recognition system. The report was reviewed for accuracy; however, sound-alike word errors, addition and/or deletions may occur. If there is any question about this report, please contact Client Services. ADDITIONAL NOTES: Immunohistochemical and/or in situ hybridization studies if performed in this case included appropriate positive controls that reacted as expected. This test was developed and its performance characteristics determined by [facility]. It has not been cleared or approved by the U.S. Food and Drug Administration. The FDA has determined that such clearance or approval is not necessary. This test is used for clinical purposes. It should not be regarded as investigational or for research. [facility] is certified under the Clinical Laboratory Improvement Amendments of 1988 (CLIA) as qualified to perform high complexity clinical laboratory testing. PERFORMING LABORATORY: Technical component was performed by [facility], [address] [place] [id number] (CLIA# [id number]). Professional interpretation was performed by [facility] [address] [facility] [phone] [id number] Diagnostician: Arabella Paez MD Pathologist PATIENT NAME: CARLOS SHEEHAN PATHOLOGY DATE OF : 56 REPORT #: [id number] PHYSICIAN: [facility] PATH[facility] PCP: THEODORA CASTILLO MD REPORT IS CONFIDENTIAL AND NOT TO BE RELEASED WITHOUT AUTHORIZATION [address] [address] Signed Electronically Signed 12/05/2024 Copies: ~ PATIENT NAME: ZAHRAACARLOS PATHOLOGY DATE OF : 56 REPORT #: [id number] PHYSICIAN: [facility] PATH[facility] PCP: THEODORA CASTILLO MD REPORT IS CONFIDENTIAL AND NOT TO BE RELEASED WITHOUT AUTHORIZATION
--- NOTE | 2024-12-13 11:46 | OR ---
[facility] [address] [place], [place] [address] Signed DATE OF OPERATION: 12/01/2024 SURGEON: Rubin Whittaker MD PREOPERATIVE DIAGNOSES: 1. Left high-grade ductal carcinoma in situ. 2. Morbid obesity. 3. Developmental delay. POSTOPERATIVE DIAGNOSES: 1. Left high-grade ductal carcinoma in situ. 2. Morbid obesity. 3. Developmental delay. PROCEDURES: 1. Injection of methylene blue dye for sentinel lymph node identification. 2. Left total mastectomy. 3. Left deep axillary sentinel lymph node biopsies x3. ANESTHESIA: General endotracheal; Carmen Arzola CRNA. INDICATION: This 64-year-old white woman is a patient of Dr. Isabella Finn and is markedly disabled with developmental delay and unable to provide meaningful history. Despite all this, she maintains her own power of bung dropper with the assistance of her caregivers. She has no living relatives. She has been affirm to provide her own power of bung dropper through discussions with her caregivers. The patient underwent a screening mammogram and the usual challenges that might be related to that. Ultimately, abnormality was found, prompting an MRI and requiring IV sedation. The lesion was then identified in the left breast at the 2 o'clock position 4 cm from the nipple. Biopsy by ultrasound guidance demonstrated ductal carcinoma in situ with comedo pattern and considered high grade. Central expansive comedo necrosis was noted. ER and MT receptors were positive and HER-2/cruzito was negative. She has autism, rheumatoid arthritis, mood disorder, impulse control disorder and intermittent explosive disorder. She is considered to have mental retardation and congenital quadriplegia (functional). Options of management have been reviewed and my recommendation has been total left mastectomy with sentinel lymph node identification so as to avoid the issues related to radiation therapy in a more limited conservative resection. Her caretakers and to the extent she can the patient understand this recommendation and wished to proceed. Her agency of decision is via the [employer] Electronically Signed By: RUBIN WHITTAKER MD 12/13/24 1146 PATIENT NAME: CARLOS VITAL OPERATIVE REPORT DATE OF : 56 REPORT #: [id number] PHYSICIAN: RUBIN WHITTAKER MD PCP: ISABELLA FINN MD REPORT IS CONFIDENTIAL AND NOT TO BE RELEASED WITHOUT AUTHORIZATION [facility] [address] [place] [address] Signed project. It is acknowledged by all parties. The risk of operation includes, but not limited to bleeding, infection, cosmetic deformity, need for additional treatment and failure to cure her problem. Understanding this all parties concerned and wished to proceed. FINDINGS: The breast was large and pendulous and she does have obesity. Total mastectomy was accomplished. [place] lymph node identification did identify three lymph nodes in the axillary area. All were excised in continuity. It was surprisingly large and firm despite not having a diagnosed infiltrating breast cancer. There were no complications. Blood loss was less than 150 mL. DESCRIPTION OF PROCEDURE: The patient was brought to the operating room, given a general LMA anesthetic, which was ultimately converted to an endotracheal anesthetic. Preoperative antibiotic Ancef was given. Sequential compression device stockings used and heparin subcutaneously administered. The left breast was prepared with a Betadine solution and a rather chlorhexidine solution and draped sterilely. Prior to anesthesia, I injected 1 mL of 50% concentrated methylene blue dye for sentinel lymph node identification. Arborization of the lymphatics was typical. The area for resection was outlined with a pen and wide resection was undertaken including the nipple-areolar complex. Superior and inferior flaps were developed dominant with sharp dissection avoiding cautery on the flaps proper. Specific bleeding sites were secured with electrocautery or hemostats. The breast was excised in the medial to lateral direction and a superior to inferior direction excising all of the breast tissue in continuity with the pectoralis fascia. Upon approaching the axilla transection, the breast tissue was undertaken and specimen passed for pathology. There appeared to be some residual axillary tail of Mustaaf and this was excised separately. Noted within the axilla in full view were some methylene blue laden lymph nodes. These appeared to be in continuity. Palpation revealed to be surprisingly firm, sharp and slightly enlarged. On that basis, those lymph nodes were excised and one continuous packet secured with suture to identify them for the pathologist. Irrigation was undertaken in the axilla. There were no other sentinel lymph nodes identified nor any other palpably suspicious lymph nodes. Irrigation was undertaken in the axillary area and the flap area with sterile water. Any areas of bleeding were secured with electrocautery. Through a single stab incision in the inferior central breast, a 7 mm Mayank drain was secured to the skin and curved configuration covering the area beneath the superior flap and with a tip extending into the axilla proper. The flap edges were Electronically Signed By: RUBIN WHITTAKER MD 12/13/24 1146 PATIENT NAME: CARLOS VITAL OPERATIVE REPORT DATE OF : 56 REPORT #: [id number] PHYSICIAN: RUBIN WHITTAKER MD PCP: ISABELLA FINN MD REPORT IS CONFIDENTIAL AND NOT TO BE RELEASED WITHOUT AUTHORIZATION [address] [address] Signed quite viable indeed. They were secured with interrupted 2-0 Vicryl and ultimately a running subcuticular 3-0 Vicryl. Steri-Strips were applied as was an Acticoat dressing. The drain was attached to bulb suction. Blood loss was estimated at 150 mL. Sponge, needle, and instrument counts reported as correct x3. MD MARI Chou/NICKO /[id number] cc: Dr. Oseguera Copies: ~ Electronically Signed By: RUBIN WHITTAKER MD 12/13/24 1146 PATIENT NAME: CARLOS VITAL OPERATIVE REPORT DATE OF : 56 REPORT #: [id number] PHYSICIAN: RUBIN WHITTAKER MD PCP: ISABELLA FINN MD REPORT IS CONFIDENTIAL AND NOT TO BE RELEASED WITHOUT AUTHORIZATION
== END 2024-12-02 13:37 | disposition home or self-care (01) ==
LOC: DS 05:42 → MS 11:40 → DS 11:40 → MS 11:40
PROVIDERS: ADMIT Surgery; ATTEND Surgery
PROC: 0HTU0ZZ Resection of Left Breast, Open Approach (ICD-10-PCS; principal; 2024-12-01 07:30)
PROC: 07B60ZZ Excision of Left Axillary Lymphatic, Open Approach (ICD-10-PCS; 2024-12-01 07:30)
DX: D05.12 Intraductal carcinoma in situ of left breast (principal); E66.01 Morbid (severe) obesity due to excess calories; F84.0 Autistic disorder; F63.9 Impulse disorder, unspecified; F39 Unspecified mood [affective] disorder; G80.8 Other cerebral palsy; R62.50 Unspecified lack of expected normal physiological development in childhood; I10 Essential (primary) hypertension; M06.9 Rheumatoid arthritis, unspecified; Z17.0 Estrogen receptor positive status [ER+]; Z17.21 Progesterone receptor positive status; Z86.69 Personal history of other diseases of the nervous system and sense organs; Z79.1 Long term (current) use of non-steroidal anti-inflammatories (NSAID); Z88.8 Allergy status to other drugs, medicaments and biological substances; Z68.33 Body mass index [BMI] 33.0-33.9, adult
CPT/HCPCS: 00400; 36415; 85025; 88305; 88307; 94762; A9270; J0131; J0690; J1100; J1644; J1885; J2250; J3010; J3490; J7121

== ENCOUNTER 2024-12-05 10:48 | Emergency (ER) | payer MEDICARE, OTHER ==
[~2024-12-05] VITALS: Ht 162.6 cm; Wt 80.0 kg
[~2024-12-05 10:48] MED LIST changes: +ABILIFY10 MG PO; +ACETAMINOPHEN500 MG PO; -LACTATED RINGER'S 1,000 ML IV SCH; +LIP BALM BASE90 GM TOP; +MIRALAX119 GM PO
[2024-12-05] MEDS ORDERED: HYDROCODON-ACE1 EA10 PO (12:57)
[2024-12-05] MEDS ORDERED: HYDROCODONE/ACETA 5/325 TAB PO ONE (13:00)
[2024-12-05] MEDS ORDERED: ACETAMINOPHEN 325 MG TAB PO ONE (13:00)
[2024-12-05 13:08] VITALS: BP 126/109
== END 2024-12-05 13:15 | disposition home or self-care (01) ==
LOC: ED 10:48
DX: L76.82 Other postprocedural complications of skin and subcutaneous tissue (principal); Z48.817 Encounter for surgical aftercare following surgery on the skin and subcutaneous tissue; Z88.8 Allergy status to other drugs, medicaments and biological substances; Z79.2 Long term (current) use of antibiotics
CPT/HCPCS: 99283; A9270